=== PATIENT | male | born 1990 | race African-American/Black ===

== ENCOUNTER 2017-07-20 17:50 | Emergency (ER) | payer BC ==
[~2017-07-20] VITALS: Ht 162.6 cm; Wt 59.0 kg
[~2017-07-20 17:50] MED LIST: NOHOMEMEDICATIONS; NORCO 5-325 TA1 EACH PO; PEPCID40 MG PO; PHENERGAN 25 MG25 M1 PO; ULTRAM 50MG TAB50 MG PO; VICODIN 5-5001 EACH PO
[2017-07-20 18:18] LABS: URINE BILIRUBIN NEGATIVE (Negative); URINE BLOOD NEGATIVE (Negative); URINE CLARITY CLEAR; URINE COLOR YELLOW; URINE GLUCOSE-RANDOM* NEGATIVE (Negative); URINE KETONES NEGATIVE (Negative); URINE LEUKOCYTES-REFLEX NEGATIVE (Negative); URINE NITRITE-REFLEX NEGATIVE (Negative); URINE PROTEIN (DIPSTICK) NEGATIVE (Negative); URINE UROBILINOGEN 0.2 E.U./dl (0.2-1.0)
[2017-07-20] MEDS ORDERED: IBUPROFEN 600600 M1 PO (18:33)
== END 2017-07-20 19:14 | disposition home or self-care (01) ==
LOC: ER 17:50
PROVIDERS: Physician Assistant
DX: M79.641 Pain in right hand (principal); Z88.8 Allergy status to other drugs, medicaments and biological substances

== ENCOUNTER 2021-04-08 13:50 | Emergency (ER) | payer BC ==
[~2021-04-08] VITALS: Ht 162.6 cm; Wt 72.6 kg
[~2021-04-08 13:50] MED LIST changes: +IBUPROFEN 600600 M1 PO
[2021-04-08 15:09] VITALS: BP 115/61
== END 2021-04-08 18:29 | disposition home or self-care (01) ==
LOC: ER 13:50
DX: S43.492A Other sprain of left shoulder joint, initial encounter (principal); F12.90 Cannabis use, unspecified, uncomplicated; Z79.891 Long term (current) use of opiate analgesic; Z79.899 Other long term (current) drug therapy; Z79.1 Long term (current) use of non-steroidal anti-inflammatories (NSAID); Z88.6 Allergy status to analgesic agent; Z88.8 Allergy status to other drugs, medicaments and biological substances; X50.1XXA Overexertion from prolonged static or awkward postures, initial encounter; Y93.89 Activity, other specified; Y92.89 Other specified places as the place of occurrence of the external cause; Y99.0 Civilian activity done for income or pay